=== PATIENT | female | born 1960 | race Caucasian/White ===

== ENCOUNTER 2022-01-31 13:26 | Emergency (ER) | payer OTHER | END 2022-01-31 16:05 | disposition home or self-care (01) | LOC: CSHERS 13:26 | DX: M25.531 Pain in right wrist (principal); M25.521 Pain in right elbow ==

== ENCOUNTER 2025-02-27 12:06 | Emergency (ER) | payer OTHER, SELFPAY ==
[2025-02-27 12:58] LABS: Glucose, Urine (Dipstick) Normal (Negative); Leukocyte 500 (Negative); Protein, Urine (Dipstick) 100 mg/dl (Neg-Trace); Specific Gravity, Urine 1.020 (1.005-1.030)
[2025-02-27 12:59] LABS: Bacteria/HPF Rare-Few HPF (None Seen); CAUTI Indications for Culture Dysuria,urgency,freq; Mucous/LPF 1+ LPF (<2+); Other Microscopic Description Less than 2 mL rec'd; RBC/HPF 21-50 HPF (0-3)
[2025-02-27 13:00] LABS: Urine Culture Reflex Yes Yes
== END 2025-02-27 13:13 | disposition home or self-care (01) ==
LOC: CSHERS 12:06
DX: N39.0 Urinary tract infection, site not specified (principal); R03.0 Elevated blood-pressure reading, without diagnosis of hypertension; R31.29 Other microscopic hematuria; F17.210 Nicotine dependence, cigarettes, uncomplicated; Z55.6 Problems related to health literacy
CPT/HCPCS: 81001; 87086; 99284